=== PATIENT | male | born 1955 | race Caucasian/White ===

== ENCOUNTER 2017-02-14 07:20 | Day surgery (SDC) | payer OTHER ==
[~2017-02-14] VITALS: Ht 177.8 cm; Wt 96.9 kg
[2017-02-14] MEDS ORDERED: ASPIRIN 81M81 MG/TA2 PO (08:09)
[2017-02-14] MEDS ORDERED: NORVASC 10MG10 MG PO (08:10)
[2017-02-14] MEDS ORDERED: ZESTRIL 20MG TA20 MG PO (08:10)
[2017-02-14] MEDS ORDERED: BYSTOLIC10 MG PO (08:10)
[2017-02-14 08:33] VITALS: BP 165/101; PULSE 60; TEMP 98.5
[2017-02-14 10:12] VITALS: BP 140/89; PULSE 71; TEMP 99.1
[2017-02-14 10:27] VITALS: BP 133/78; PULSE 68
[2017-02-14 10:42] VITALS: BP 130/77; PULSE 73
[2017-02-14 14:47] VITALS: BP 118/79; PULSE 68
== END 2017-02-14 10:50 | disposition home or self-care (01) ==
LOC: SDCO 07:20
DX: Z86.010 Personal history of colon polyps (principal); Z80.0 Family history of malignant neoplasm of digestive organs; K63.5 Polyp of colon; K64.0 First degree hemorrhoids; I10 Essential (primary) hypertension
CPT/HCPCS: OP; J2250; J3010; J7030